=== PATIENT | female | born 1965 | race Caucasian/White ===

== ENCOUNTER 2016-08-22 11:31 | Outpatient (CLI) | payer OTHER | END 2016-08-22 11:32 | disposition home or self-care (01) | DX: Z00.00 Encounter for general adult medical examination without abnormal findings (principal); E78.00 Pure hypercholesterolemia, unspecified; N83.299 Other ovarian cyst, unspecified side ==

== ENCOUNTER 2017-01-22 14:44 | Outpatient (CLI) | payer OTHER ==
--- NOTE | 2017-01-23 12:20 | XRAY Report ---
THREE VIEW LEFT ANKLE: 01/22/2017 CLINICAL INDICATION: Pain. FINDINGS: AP, lateral, and oblique views of the left ankle demonstrate no evidence of fracture or di slocation. The joint spaces are preserved. Small plantar and posterior calcaneal spurs are present. IMPRESSION: CALCANEAL SPURRING. NO EVIDENCE OF ANKLE FRACTURE. JOB #: [id number] EXT JOB #:[id number]
== END 2017-01-22 14:45 | disposition home or self-care (01) ==
LOC: DI 14:44
PROVIDERS: ATTEND Naprapath
DX: M77.32 Calcaneal spur, left foot (principal)

== ENCOUNTER 2017-01-23 13:25 | Outpatient (CLI) | payer OTHER | END 2017-01-23 13:26 | disposition home or self-care (01) | LOC: LAB 13:25 | PROVIDERS: ATTEND Naturopath | DX: E55.9 Vitamin D deficiency, unspecified (principal); Z13.1 Encounter for screening for diabetes mellitus | CPT/HCPCS: 36415; 82306; 82947 ==

== ENCOUNTER 2017-03-31 15:24 | Outpatient (CLI) | payer OTHER ==
[2017-04-01 12:03] LABS: PROGESTERONE <0.5 ng/mL
[2017-04-02 18:21] LABS: DHEA SULFATE 90 mcg/dL (8-188)
== END 2017-03-31 15:25 | disposition home or self-care (01) ==
LOC: LAB 15:24
PROVIDERS: ATTEND Naturopath
DX: N95.1 Menopausal and female climacteric states (principal)
CPT/HCPCS: 36415; 82627; 82670; 82672; 84144; 84403

== ENCOUNTER 2017-04-30 16:12 | Outpatient (CLI) | payer OTHER | END 2017-04-30 16:13 | disposition home or self-care (01) | LOC: LAB 16:12 | PROVIDERS: ATTEND Naturopath | DX: Z83.0 Family history of human immunodeficiency virus [HIV] disease (principal) | CPT/HCPCS: 36415; 87389 ==

== ENCOUNTER 2017-05-26 14:49 | Outpatient (CLI) | payer OTHER ==
--- NOTE | 2017-05-26 18:22 | Ultrasound Report ---
ULTRASOUND LEFT FACE: 05/26/2017 CLINICAL INDICATION: Swelling, tenderness, question abscess. TECHNIQUE: Real-time scanning was performed with member services representative static images obtained. Ultrasound of the region of swelling and tenderness identified by the patient was performed. Unremar kable subcutaneous fat is seen. No discrete fluid collection is seen to suggest abscess formation. IMPRESSION: NO EVIDENCE OF A DRAINABLE ABSCESS IN THE LEFT CHEEK OR PERIPAROTID REGION. JOB #: [id number] EXT JOB #:
== END 2017-05-26 14:50 | disposition home or self-care (01) ==
LOC: DI 14:49
PROVIDERS: ATTEND Naprapath
DX: R22.0 Localized swelling, mass and lump, head (principal)
CPT/HCPCS: 76536

== ENCOUNTER 2017-06-23 09:19 | Emergency (ER) | payer OTHER ==
[2017-06-23 09:45] VITALS: BP 139/59
--- NOTE | 2017-06-23 10:24 | XRAY Preliminary Report ---
Exam: XR CHEST 2 VIEW PA/LAT IMPRESSION: Minimal reticulation at the lung bases that may reflect a small amount of atelectasis, sc arring, or pneumonitis. No focal consolidation or effusions. [facility] SITE ID: [id number]
--- NOTE | 2017-06-23 10:27 | XRAY Report ---
EXAM: CHEST RADIOGRAPHY EXAM DATE: 06/23/2017 10:03 AM. CLINICAL HISTORY: Cough. COMPARISON: None. TECHNIQUE: 2 views. FINDINGS: Lungs/Pleura: Minimal reticulation at the lung bases. No lobar consolidation. No pleural effusion. No pneumothorax. Mediastinum: Cardiac silhouette size appears unremarkable. Other: Mild degenerative changes. IMPRESSION: Minimal reticulation at the lung bases that may reflect a small amount of atelectasis, sc arring, or pneumonitis. No focal consolidation or effusions. [facility] Referring Provider Line: [phone] SITE ID: [id number]
--- NOTE | 2017-06-23 10:36 | ED Physician Documentation ---
History of Present Illness - Stated complaint Stated Complaint: COUGH,R SIDE LUNG PX - Chief complaint Chief Complaint: Resp - Additonal information Additional information: hx from pt productive cough some congestion body aches perimenopausal so not sure if she has a fever no new or diff leg swelling X several days also has a jaw problem since last month and is due to get MRI Review of Systems Constitutional: reports: Fever, Myalgias Nose: reports: Congestion Respiratory: reports: Cough GI: denies: Vomiting, Diarrhea Immunocompromised: denies: Immunocompromised PD PAST MEDICAL HISTORY - Past Medical History Past Medical History: Yes Cardiovascular: High cholesterol - Past Surgical History Past Surgical History: Yes Ortho: Shoulder arthroplasty, Carpal Tunnel surgery, 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 - Present Medications Home Medications: Ambulatory Orders Medication Instructions Recorded Confirmed Azithromycin [Zithromax] 250 mg PO DAILY #6 tablet 06/23/17 - Allergies Allergies/Adverse Reactions: Allergies Allergy/AdvReac Type Severity Reaction Status Date / Time cefazolin sodium * Allergy Respiratory Verified 03/05/16 15:26 [From Ancef] Cephalosporins Allergy Rash Verified 03/05/16 15:26 latex Allergy Rash Verified 03/05/16 15:26 Penicillins Allergy Respiratory Verified 03/05/16 15:26 - Social History Does the pt smoke?: No Smoking Status: Never smoker Does the pt drink ETOH?: Yes ETOH Use: Liquor Does the pt have substance abuse?: No - Immunizations Immunizations are current?: Yes - POLST Patient has POLST: No PD ED PE NORMAL - Vitals Vital signs reviewed: Yes - HEENT HEENT: PERRL, Ears normal, Moist mucous membranes - Neck Neck: Supple, no meningeal sign - Cardiac Cardiac: RRR - Respiratory Respiratory: No respiratory distress, Clear bilaterally - Extremities Extremities: No calf tenderness / cord - Neuro Neuro: Alert and oriented X 3 Results - Vitals Vitals: Vital Signs - 24 hr 06/23/17 09:42 Temperature 36.3 C L Heart Rate 70 Respiratory 20 Rate Blood Pressure 139/59 H O2 Saturation 99 Oxygen O2 Source Room air - Rads (name of study) CXR Radiology: See rad report (reticulation and lung bases may represent atelectasis or pneumonitis) Departure - Departure Disposition: 01 Home, Self Care Clinical Impression: Pneumonia Qualifiers: Pneumonia type: due to unspecified organism Laterality: bilateral Lung location : lower lobe of lung Qualified Code(s): J18.9 - Pneumonia, unspecified organism Condition: Good Instructions: ED Pneumonia Adult Follow-Up: Danette Suresh ND [Primary Care Provider] - Prescriptions: Azithromycin [Zithromax] 250 mg PO DAILY #6 tablet Forms: Activity restrictions
== END 2017-06-23 11:20 | disposition home or self-care (01) ==
LOC: ED 09:19
DX: J18.9 Pneumonia, unspecified organism (principal); E78.00 Pure hypercholesterolemia, unspecified
CPT/HCPCS: 71020; 99283

== ENCOUNTER 2017-07-09 09:51 | Outpatient (CLI) | payer OTHER ==
[~2017-07-09 09:51] MED LIST: GADOBUTROL 10 MMOL/10 ML VIAL ONE
--- NOTE | 2017-07-09 14:14 | MRI Report ---
MRI OF THE SOFT TISSUES OF THE NECK WITHOUT CONTRAST EXAM DATE: 07/09/2017. HISTORY: Reported history of swelling with a mass or lump in the region of the left side of the tiffanie ble. COMPARISON: None. PROCEDURE: Axial and coronal T1. Axial and coronal STIR. Axial T2 without fat saturation. No IV contr ast. FINDINGS: No evidence for acute soft tissue inflammation, focal space occupying mass or a pathologically enlarg ed cervical lymph node. Unremarkable unenhanced contours of the thyroid gland and submandibular gland s. No asymmetric mass or acute inflammatory process of the pharynx or larynx. Grossly symmetric vocal cords. No significant asymmetry of the parotid glands. No evidence for focal space occupying mass, acute inf lammatory process or expansile cyst-like process. The parotid gland main ducts are visible but not ov ertly dilated and an obstructive process is not identified. No evidence for an asymmetric mass, infiltrate or abnormally enlarged lymph node in the region of the mandible, with attention to the left side were symptoms have been reported. Small left maxillary sinus retention cyst. Limited evaluation of the cervical spinal column. No evide nce for significant stenosis or cord compression. There may be a midline posterior disk herniations a t the C2-C3, C3-C4 and C6-C7 levels. IMPRESSION: Essentially unremarkable appearing unenhanced soft tissues of the neck. No evidence for a pathologica lly enlarged lymph node, acute inflammatory process, space occupying mass or significant major saliva ry gland asymmetry. If there is additional concern for a salivary duct radiopaque stone, CT of the ne ck without contrast could be considered. Referring Provider Line: [phone] SITE ID: [id number]
== END 2017-07-09 09:52 | disposition home or self-care (01) ==
LOC: DI 09:51
PROVIDERS: ATTEND Naprapath
DX: R22.0 Localized swelling, mass and lump, head (principal)
CPT/HCPCS: 70540

== ENCOUNTER 2017-10-15 19:52 | Emergency (ER) | payer OTHER ==
[2017-10-15 19:58] VITALS: BP 137/68
[2017-10-15] MEDS ORDERED: IBUPROFEN 600 MG TABLET PO STA (20:07)
[2017-10-15] MEDS ORDERED: DEXAMETHASONE 10 MG/ML VIAL PO STA (20:07)
--- NOTE | 2017-10-15 20:15 | ED Physician Documentation ---
PD HPI HEENT - Stated complaint Stated Complaint: SORE THROAT - Chief complaint Chief Complaint: Heent - History obtained from History obtained from: Patient - History of Present Illness Timing - onset: How many days ago (4) Timing - details: Gradual onset, Still present Location: Throat Worsens: Swalllowing Associated symptoms: Fever. No: Congestion, Rhinorrhea Similar symptoms before: No diagnosis Recently seen: Not recently seen - Additional information Additional information: Patient is a 52 year old female presenting to the emergency department for throat pain. Patient states that she had a cough earlier in the week and then developed mild throat pain. Patient had her neighbor look at it who said it looked a little red. patient was unsure if she had allergies or possibly strep throat so she came in for evaluation. Review of Systems Constitutional: reports: Fever. denies: Chills, Myalgias Eyes: denies: Discharge, Irritation Ears: denies: Ear pain, Drainage/discharge Nose: reports: Congestion Throat: reports: Sore throat Respiratory: reports: Cough. 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 - Allergies Allergies/Adverse Reactions: Allergies Allergy/AdvReac Type Severity Reaction Status Date / Time nitrofurantoin Allergy Severe Anaphylaxis Verified 10/15/17 19:58 [From Macrobid] cefazolin sodium * Allergy Respiratory Verified 10/15/17 19:58 [From Ancef] Cephalosporins Allergy Rash Verified 10/15/17 19:58 latex Allergy Rash Verified 10/15/17 19:58 Penicillins Allergy Respiratory Verified 10/15/17 19:58 - Social History Does the pt smoke?: No Smoking Status: Never smoker Does the pt drink ETOH?: Yes Does the pt have substance abuse?: No - Immunizations Immunizations are current?: Yes - POLST Patient has POLST: No PD ED PE NORMAL - General General: Alert and oriented X 3, No acute distress, Well developed/nourished - HEENT HEENT: Atraumatic, PERRL, Ears normal, Moist mucous membranes - Neck Neck: Supple, no meningeal sign - Cardiac Cardiac: RRR - Respiratory Respiratory: No respiratory distress - Abdomen Abdomen: Non distended - Derm Derm: Normal color, No rash - Extremities Extremities: No deformity - Neuro Neuro: Alert and oriented X 3 Eye Opening: Spontaneous Motor: Obeys Commands Verbal: Oriented GCS Score: 15 - Psych Psych: Normal mood PD ED PE EXPANDED - General General: Alert, Anxious - HEENT HEENT: Ears normal, Pharyngeal erythema. No: Swollen tonsils, Tonsillar exudate , Soft palate petecchiae Results - Vitals Vitals: Vital Signs - 24 hr 10/15/17 19:54 Temperature 36.9 C Heart Rate 77 Respiratory 17 Rate Blood Pressure 137/68 H O2 Saturation 98 Oxygen O2 Source Room air - Labs Labs: Laboratory Tests 10/15/17 20:00 Group A Strep Rapid Negative PD MEDICAL DECISION MAKING - ED course Complexity details: reviewed old records, reviewed results, re-evaluated patient , considered differential, d/w patient ED course: Patient was seen and examined at bedside. patient was mildly anxious but in no acute distress. Patient had mild pharyngeal erythema. Patient was treated with decadron and ibuprofen. rapid strep was performed and was negative. Patient required no further work up and was stable for discharge with outpatient follow up. Departure - Departure Disposition: 01 Home, Self Care Clinical Impression: Viral pharyngitis Condition: Good Instructions: ED Pharyngitis Viral Follow-Up: Danette Suresh ND [Primary Care Provider] - As Needed Comments: Your diagnostics today were within normal limits. There is no sign of strep throat. You should take take motrin, or tylenol as needed for pain. You can try over the counter cold medicine and throat lozenges. You should follow up with your doctor if your symptoms persist. You may return to the emergency department at any time for new, worsening or uncontrollable symptoms.
== END 2017-10-15 20:24 | disposition home or self-care (01) ==
LOC: ED 19:52
DX: J02.8 Acute pharyngitis due to other specified organisms (principal); B34.9 Viral infection, unspecified; E78.00 Pure hypercholesterolemia, unspecified
CPT/HCPCS: 87070; 87430; 99283; A9270

== ENCOUNTER 2023-06-11 17:47 | Emergency (ER) | payer MEDICAID ==
[2023-06-11 17:58] VITALS: BP 148/85; O2SAT 98
[2023-06-11] MEDS ORDERED: ERYTHROMYCIN OPHTH OINT 1 GM TUBE RIGHTEYE STA (18:05)
--- NOTE | 2023-06-11 18:06 | ED Physician Documentation ---
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 There was no foreign body. Her vision is unaffected by it. 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 - Present Medications Home Medications: Ambulatory Orders Medication Instructions Recorded Confirmed Erythromycin Base [Erythromycin 1 appful OP 5XD 7 Days #1 gm 06/11/23 Ophthalmic Ointment] - Allergies Allergies/Adverse Reactions: Allergies Allergy/AdvReac Type Severity Reaction Status Date / Time nitrofurantoin Allergy Severe Anaphylaxis Verified 06/11/23 17:52 [From Macrobid] cefazolin sodium * Allergy Respiratory Verified 06/11/23 17:52 [From Ancef] Cephalosporins Allergy Rash Verified 06/11/23 17:52 latex Allergy Rash Verified 06/11/23 17:52 Penicillins Allergy Respiratory Verified 06/11/23 17:52 - Social History Does the pt smoke?: No Smoking Status: Never smoker Does the pt drink ETOH?: Yes Does the pt have substance abuse?: No - Immunizations Immunizations are current?: Yes - POLST Patient has POLST: No PD ED PE NORMAL - Vitals Vital signs reviewed: Yes - HEENT HEENT: PERRL, EOMI, Other (Mild conjunctivitis of the right eye. No fluorescein uptake. Palomo-Pen OD 15) - Derm Derm: No rash - Neuro Neuro: Alert and oriented X 3 Results - Vitals Vitals: Vital Signs - 24 hr 06/11/23 17:52 Temperature 36.5 C Heart Rate 100 Respiratory 16 Rate Blood Pressure 148/85 H O2 Saturation 98 Oxygen O2 Source Room air Departure - Departure Disposition: 01 Home, Self Care Clinical Impression: Conjunctivitis Qualifiers: Conjunctivitis type: acute Acute conjunctivitis type: unspecified Laterality: right Qualified Code(s): H10.31 - Unspecified acute conjunctivitis, right eye Condition: Good Record reviewed to determine appropriate education?: Yes Instructions: ED Conjunctivitis Nonspecific Prescriptions: Erythromycin Base [Erythromycin Ophthalmic Ointment] 1 appful OP 5XD 7 Days #1 gm Comments: I sent a prescription electronically to the [facility] in [place]. Follow-up with your eye doctor Thursday if not improving. Return for new or worsening symptoms. Forms: PCP List
== END 2023-06-11 18:15 | disposition home or self-care (01) ==
LOC: ED 17:47
DX: H10.31 Unspecified acute conjunctivitis, right eye (principal)
CPT/HCPCS: 99282; 99283; J3490